=== PATIENT | female | born 1970 | race Caucasian/White ===

== ENCOUNTER 2022-12-06 20:37 | Emergency (ER) | payer SELFPAY ==
[~2022-12-06] VITALS: Ht 170.2 cm; Wt 63.5 kg
[2022-12-06 20:57] VITALS: BP 135/80; PULSE 85; RESP 19; TEMP 98.3; O2SAT 100
[2022-12-06 21:00] VITALS: O2SAT 100
[2022-12-06] MEDS ORDERED: KETOROLAC 30 MG/ML VIAL IM ONE (23:15)
[2022-12-06] MEDS ORDERED: diazePAM 5 MG TAB PO ONE (23:15)
[2022-12-07] MEDS ORDERED: NAPR-54 PO (00:19)
[2022-12-07] MEDS ORDERED: CYCL-711 PO (00:19)
--- NOTE | 2022-12-07 00:25 | NUR ---
Patient discharged Muscle Strain and Earache. Written and verbal after care instructions given and explained. Patient alert, oriented and verbalized understanding of instructions. Ambulatory with steady gait. All questions addressed prior to discharge. ID band removed. Patient advised to follow up with PMD. Rx of Flexeril and Naproxen given. Patient educated on indication of medication including possible reaction and side effects. Opportunity to ask questions provided and answered.
== END 2022-12-07 00:25 | disposition home or self-care (01) ==
LOC: MED 20:37
DX: H92.03 Otalgia, bilateral (principal); M62.838 Other muscle spasm; Z79.899 Other long term (current) drug therapy
CPT/HCPCS: 96372; 99283; J1885